=== PATIENT | female | born 1970 | race Caucasian/White ===

== ENCOUNTER → 2017-09-08 12:08 | Outpatient (CLI) | payer OTHER, SELFPAY | PROVIDERS: Family Provider Family Medicine; PCP Family Medicine; Visit Provider Family Medicine | DX: R30.0 Dysuria (principal) | CPT/HCPCS: 87086; 87088; 87186 ==

== ENCOUNTER → 2018-03-10 10:15 | Outpatient (CLI) | payer OTHER, SELFPAY ==
[2018-03-10 11:40] LABS: T4 Free Direct 1.17 ng/dL (0.76-1.46); Thyroid Stim Hormone (TSH) 1.84 uIU/mL (0.358-3.74)
== END ==
PROVIDERS: Family Provider Family Medicine; PCP Family Medicine; Visit Provider Family Medicine
DX: E03.9 Hypothyroidism, unspecified (principal)
CPT/HCPCS: 36415; 84439; 84443

== ENCOUNTER → 2018-06-15 11:19 | Outpatient (CLI) | payer OTHER, SELFPAY ==
[2018-06-19 13:35] LABS: HPV Reflexed? NOT INDICATED
== END ==
PROVIDERS: Visit Provider Obstetrics & Gynecology
DX: Z12.4 Encounter for screening for malignant neoplasm of cervix (principal)
CPT/HCPCS: 88175; G0145

== ENCOUNTER → 2018-06-23 17:21 | Outpatient (CLI) | payer OTHER, SELFPAY | PROVIDERS: Referring Provider Otolaryngology; Visit Provider Otolaryngology | DX: J02.9 Acute pharyngitis, unspecified (principal) | CPT/HCPCS: 87070 ==

== ENCOUNTER → 2018-07-20 13:03 | Outpatient (CLI) | payer OTHER, SELFPAY ==
[2018-01-16 13:02] VITALS: BMI 35.5
--- NOTE | 2018-07-20 13:04 | BI_ITS ---
MAMMOGRAPHY - BILATERAL SCREENING REASON FOR EXAM: Female, 48 years old. Routine annual screening examination. PERTINENT HISTORY: Non-contributory. TECHNIQUE: Digital bilateral breast bayron (3D mammographic acquisition) in the CC and MLO projections. 2-D mediolateral oblique (MLO) and craniocaudad (CC) views of both breasts were obtained. CAD: Full Field Digital Mammography with Computer Added Detection was performed. COMPARISON: Comparison is made with prior study dated January 09, 2018 and June 24, 2016. FINDINGS: Breast Composition: There are scattered areas of fibroglandular density. There are no dominant masses or suspicious calcifications. No other significant abnormalities are identified. There has been no significant change since the prior study. BI/SCREENING MAMM (CAD), BILAT IMPRESSION: Stable bilateral screening mammogram. Yearly follow-up mammogram recommended. (A) ASSESSMENT CATEGORY: BIRADS Category 1: Negative. A letter regarding these results will be sent to the patient by the facility within 30 days. Approximately 10% of breast cancers are not detected by mammography. A normal mammogram should not delay biopsy of a clinically suspicious abnormality. [id number] Electronically Signed: Vijay Rosales MD at 8:11 EST , Service support ,
--- NOTE | 2018-07-20 13:04 | BI_ITS ---
MAMMOGRAPHY - BILATERAL SCREENING REASON FOR EXAM: Female, 48 years old. Routine annual screening examination. PERTINENT HISTORY: Non-contributory. TECHNIQUE: Digital bilateral breast flavio (3D mammographic acquisition) in the CC and MLO projections. 2-D mediolateral oblique (MLO) and craniocaudad (CC) views of both breasts were obtained. CAD: Full Field Digital Mammography with Computer Added Detection was performed. COMPARISON: Comparison is made with prior study dated January 09, 2018 and June 24, 2016. FINDINGS: Breast Composition: There are scattered areas of fibroglandular density. There are no dominant masses or suspicious calcifications. No other significant abnormalities are identified. There has been no significant change since the prior study. BI/Bilat Brst Screen Flavio Add-On IMPRESSION: Stable bilateral screening mammogram. Yearly follow-up mammogram recommended. (A) ASSESSMENT CATEGORY: BIRADS Category 1: Negative. A letter regarding these results will be sent to the patient by the facility within 30 days. Approximately 10% of breast cancers are not detected by mammography. A normal mammogram should not delay biopsy of a clinically suspicious abnormality. [id number] Electronically Signed: Vijay Rosales MD at 8:11 EST , Service support ,
--- OUTSIDE RECORDS SUMMARY | 2018-09-14 02:27 | XMS RPT_ITS ---
:1970 Author Organization [place] Care Team Providers Name Role Phone Candice Orantes Attending Unavailable Gregory Sam Attending Unavailable Gregory Sam Referring Unavailable Kiran Cabral Attending Unavailable Kiran Cabral Referring Unavailable Kiran Cabral Primary Care Unavailable Alma Delia Macdonald Attending Unavailable Kiran Cabral Referring Unavailable ASSESSMENT, HEALTH RISK Attending Unavailable [facility] [place] [facility] Attending Unavailable Kiran Cabral Referring Unavailable [facility] Unavailable PROBLEMS PROBLEMS DATE TYPE CONDITION / CODE ATTENDING STATUS SOURCE 06/15/2018 Unknown Z12.4 - Encounter Rolanda, Active [place] for screening for [facility] malignant neoplasm Hospital of cervix / Repository Z12.4(ICD-10) 03/10/2018 Unknown E03.9 - Ranmichael, Active [place] Hypothyroidism, [facility] unspecified / Hospital E03.9(ICD-10) Repository 03/10/2018 Unknown 244.9 - Unspecified [facility], Active [place] acquired [facility] hypothyroidism / Hospital 244.9(ICD-9) Repository 09/08/2017 Unknown R30.0 - Dysuria / Ranney, Active [place] R30.0(ICD-10) [facility] Repository 09/08/2017 Unknown 788.1 - Dysuria / [facility], Active [place] 788.1(ICD-9) [facility] Repository PROCEDURES PROCEDURES No Procedure Records FoundRESULTS RESULTS Observed: 06/23/2018 Status: F Source: [place] CULTURE, THROAT 5:25 PM [facility] REPOSITORY Culture, Throat Mixed normal throat parminder. No Haemophilus, Streptococcus pneumoniae, beta-hemolytic Streptococcus or Staphylococcus aureus isolated. Performed By: #### M100.1000 #### [facility] [address], [address] PAP I-G W/RFX HRHPV Collected: 06/15/2018 Status: F Source: [place] 9:15 AM [facility] REPOSITORY Order Comment: CYTOLOGY INFORMATION: - CLINICAL INFORMATION: - DATE LMP/MENOPAUSE: 05/02/18 LMP - COLLECTION VIAL: Thin Prep Vial - SPECIAL PROCEDURES NURSE SOURCE: CERVICAL/ENDOCERVICAL - COLLECTION TECHNIQUE: BRUSH/SPATULA Specimen Comment: [id number] Specimen Comment: Source.............Cervix;Endocervix Specimen Comment: LMP / Prev Treat...[id number] Specimen Comment: No. of containers..01 ThinPrep Vial TYPE CODE TESTS RESULT OUT OF RANGE REFERENCE UNITS LAB L7400.0800 . Normal DIAGN Comment Result Comment: NEGATIVE FOR INTRAEPITHELIAL LESION AND MALIGNANCY. CELLULAR CHANGES ASSOCIATED WITH INFLAMMATION ARE PRESENT. THIS SPECIMEN WAS RESCREENED PART OF OUR [employer] DEVELOPER PROGRAM. LAB L7400.0900 . Normal ADEQ Comment Result Comment: Satisfactory for evaluation. Endocervical and/or squamous metaplastic cells (endocervical component) are present. LAB L7400.1400 . Normal PERFORM Comment Result Comment: Beck Saleh, Dining Room Cashier (ASCP) LAB L7400.1500 . Normal QC Comment REV Result Comment: Marilynn Villalba, Dining Room Cashier (ASCP) LAB L7400.2575 . Normal TEST METHOD Comment Result Comment: This liquid based ThinPrep(R) pap test was screened with the use of an image guided system. LAB L7400.2600 . Normal . COMM LAB L7400.2700 . Normal PAPSMR Comment Result Comment: The Pap smear is a screening test designed to aid in the detection of premalignant and malignant conditions of the uterine cervix. It is not a diagnostic procedure and should not be used as the sole means of detecting cervical cancer. Both false-positive and false-negative reports do occur. LAB L7400.2800 . Normal HPV RFLX Comment Result Comment: The HPV DNA reflex criteria were not met with this specimen result therefore, no HPV testing was performed. Performed at: [address] [id number] [place] Comber: Eva Phelan MD, Phone: [phone] Performed By: #### L7400.0350 #### [facility] (refer to report for specific site) refer to report for address and phone number [employer], EMPLOYEE Collected: 03/10/2018 Status: F Source: URIEL 10:22 AM [facility] REPOSITORY TYPE CODE TESTS RESULT OUT OF RANGE REFERENCE UNITS LAB L100.1000 4.4-11.0 K/mm3 Normal WBC 8.1 LAB L100.1200 4.2-5.4 M/mm3 Low RBC 4.12 LAB L100.1300 12.0-15.0 g/dl Normal HGB 12.6 LAB L100.1400 37-47 % Normal HCT 38.1 LAB L100.1500 81-99 fL Normal MCV 92.5 LAB L100.1600 27.0-32.0 pg Normal MCH 30.6 LAB L100.1700 32-36 g/gl Normal MCHC 33.1 LAB L100.1810 11.6-14.6 % Normal RDW CV 13.3 LAB L100.1820 35.1-43.9 fl High RDW SD 44.6 LAB L100.1900 150-450 K/mm3 Normal PLT 247 LAB L100.2000 6.2-12.0 fl Normal MPV 10.8 LAB L100.2110 47-70 % Normal NEUT% 58.9 LAB L100.2210 19-41 % Normal LY% 31.8 LAB L100.2310 0-10 % Normal MONO% 5.9 LAB L100.2410 0-5 % Normal EO% 3.1 LAB L100.2510 0-1 % Normal BASO% 0.2 LAB L100.2620 2.0-7.7 X10 3/uL Normal Absolute Neut 4.8 LAB L100.2720 0.83-4.51 X10 3/ul Normal Absolute Lymph 2.58 Performed By: #### L100.0200 #### [facility] [address] [place] [address]. [place], [place], [address] [employer], EMPLOYEE Collected: 03/10/2018 Status: F Source: [place] 10:22 AM [facility] REPOSITORY TYPE CODE TESTS RESULT OUT OF RANGE REFERENCE UNITS LAB L400.3000 Yellow COLOR Normal Yellow LAB L400.3050 Clear Normal CLARITY Clear LAB L400.3200 Normal mg/dl Normal GLUCOSE, UR Normal LAB L400.3300 Negative mg/dL Normal BILIRUBIN URINE Negative LAB L400.3400 Negative mg/dl Normal KETONE UR Negative LAB L400.3465 1.002-1.030 Normal SP.GR. DIPSTX 1.010 LAB L400.3550 5.0 - 8.0 pH UR Normal 6.5 LAB L400.3600 Negative mg/dl PROT Normal DIPSTX Negative LAB L400.3700 Normal mg/dl Normal UROBILI Normal LAB L400.3750 Negative Normal NITRITE UR Negative LAB L400.3780 Negative /ul Normal OCCULT BLOOD-UR Negative LAB L400.3800 Negative /ul High LEUK ESTERASE 500 Performed By: #### L400.0100 #### [facility] [address] [place], [address] EMPLOYEE PROFILE Collected: 03/10/2018 Status: F Source: URIEL 10:22 AM [facility] REPOSITORY TYPE CODE TESTS RESULT OUT OF RANGE REFERENCE UNITS LAB L501.0100 74-106 mg/dL Normal GLU 83 Result Comment: Please note revised GLUCOSE reference range effective 2017. LAB L501.1000 7-18 mg/dL Normal BUN 9 LAB L501.1100 0.55-1.02 mg/dL Normal CREAT,SERUM 0.98 Result Comment: The validity of the calculated GFR AND GFRAA in patients over 70 years has not been determined. Clinical correlation is essential. LAB L501.1110 >60 mL/min Normal EST GFR 64 Result Comment: Non- GFR Calc LAB L501.1115 >60 mL/min Normal EST GFR - AA 78 Result Comment: GFR Calc LAB L501.1300 10-20 RATIO Low BUN/CRE 9.2 LAB L501.1400 2.6-6.0 mg/dL Normal URIC 5.1 Result Comment: The drugs N-Acetylcysteine and Metamizole may falsely depress this assay. LAB L501.1500 6.4-8.2 g/dL Normal T PROT 7.3 LAB L501.1800 3.2-5.0 g/dL Normal ALB 3.2 LAB L501.1950 2.2-4.2 g/dL Normal GLOB 4.1 LAB L501.2000 0.9-2.4 RATIO Low A/G 0.8 LAB L501.2200 8.5-10.1 mg/dL Normal CA 8.6 LAB L501.2300 2.5-4.9 mg/dL Low PHOS 2.2 LAB L501.4100 15-37 U/L Normal AST 17 LAB L501.4305 45-117 U/L Normal ALK P 74 LAB L501.4405 13-56 U/L Normal ALT 20 LAB L501.4600 0.20-1.00 mg/dL Normal T BILI 0.60 LAB L501.4700 0.00-0.30 mg/dL Normal D BILI 0.16 LAB L501.4900 200 mg/dL Normal CHOL 179 Result Comment: <200 mg/dL Desirable 200-240 mg/dL Borderline >240 mg/dL High Risk LAB L501.5000 mg/dL Normal TRIG 175 Result Comment: The drugs N-Acetylcysteine and Metamizole may falsely depress this assay. Serum Triglycerides Reference Interval Normal <150 mg/dL Borderline high 150 - 199 mg/dL High 200 - 499 mg/dL Very High > or = 500 mg/dL LAB L501.5300 136-145 mmol/L Normal NA 138 LAB L501.5600 3.5-5.1 mmol/L Normal K 3.9 LAB L501.5900 98-107 mmol/L Normal CL 107 LAB L501.6100 21.0-32.0 mmol/L Normal CO2 22.0 LAB L501.6200 5-15 Normal 9 GAP LAB L501.6400 mg/dL Normal HDL 46 Result Comment: The drugs N-Acetylcysteine and Metamizole may falsely depress this assay. Reference Range HDL <40 mg/dL Low HDL Cholesterol HDL >or= 60 mg/dL High HDL Cholesterol LAB L501.6475 Normal CHOL:HDL 3.90 LAB L501.6500 0-130 mg/dL Normal LDL 98 LAB L501.6600 5-40 mg/dL Normal VLDL 35 LAB L504.2610 84-246 U/L Normal LDH 136 Performed By: #### L500.2900 #### [facility] [address] [facility], [address] NICOTINE URINE DRUG Collected: 03/10/2018 Status: F Source: [place] SCREEN 10:22 AM [facility] REPOSITORY TYPE CODE TESTS RESULT OUT OF RANGE REFERENCE UNITS LAB L505.6250 TO BE Normal CONFIRMED Result Comment: CONFIRMATORY TESTING FOR ALL POSITIVE URINE DRUG SCREEN RESULTS WILL ONLY BE SENT OUT UPON PHYSICIAN ORDER. The results of Urine Drug Screen methods provide only preliminary analytical test results. A more specific alternate chemical method must be used in order to obtain a confirmed analytical result. Gas chromatography/mass spectrometery (GC/MS) is the preferred confirmatory method. Clinical consideration and professional judgement should be applied to any drug of abuse test result, particularly when preliminary positive results are used. LAB L505.6224 <200 ng/mL Normal COT DRG Negative SCREEN Result Comment: Cotinine is the first-stage metabolite of Nicotine. Performed By: #### L505.6221 #### [facility] [address] [facility] [place], [address] THYROID STIM HORMONE Collected: 03/10/2018 Status: F Source: URIEL (TSH) 10:21 AM [facility] REPOSITORY Order Comment: Order Date: 09/08/17 Order Info: 3016-3 - TSH Order Info: 3024-7 - T4F TYPE CODE TESTS RESULT OUT OF RANGE REFERENCE UNITS LAB L501.9520 0.358-3.74 uIU/mL Normal TSH 1.84 Performed By: #### L501.9520, L506.0400 #### [facility] [address] [place], [address] T4 FREE DIRECT Collected: 03/10/2018 Status: F Source: URIEL 10:21 AM [facility] REPOSITORY Order Comment: Order Date: 09/08/17 Order Info: 3016-3 - TSH Order Info: 3024-7 - T4F TYPE CODE TESTS RESULT OUT OF RANGE REFERENCE UNITS LAB L506.0400 0.76-1.46 ng/dL Normal T4 FREE 1.17 DIRECT Performed By: #### L501.9520, L506.0400 #### [facility] [address] [place], [address] URGENT CARE VISIT Observed: 01/16/2018 Status: F Source: URIEL REPORT 2:42 PM [facility] REPOSITORY [facility] [address] [place] [address] [address] [place] [address] OFFICE VISIT Date of Service: 01/16/18 MR#: [id number] Acct: [id number] Name: MERY BUTLER Rep #: [id number] : 1970 Provider: CHEPE Macdonald Age/Sex: 47/F Location: [facility] Status: Signed Intake Vital Signs01/16/18 Height 5 ft 7 in 01/16/18 Weight: 227 lb 01/16/18 Body Mass Index (BMI) 35.5 01/16/18 Blood Pressure 122/80 Intake Visit Reasons: INSECT BITE LEFT ANKLE Chief Complaint: left ankle ?infected bug bite Neonatal Intensive Care Unit Nurse Required: No Is patient in pain?: Yes Allergies No Known Allergies Allergy (Verified 01/16/18 13:03) Medications Bupropion HCl [Bupropion Xl] 300 mg PO DAILY 01/07/15 [History Confirmed 01/07/15] Levothyroxine [Synthroid] 88 mcg PO DAILY 01/07/15 [History Confirmed 01/14/15] PFSH Medical History Hay fever (Acute) Thyroid disease (Acute) severe headaches (Acute) Surgical History History of cholecystectomy (Acute) Family History Mother Cancer skin cancer Hypertension Father Carcinoma Social History Smoking Status: Never smoker alcohol intake: never HPI HPI Chief Complaint: left ankle ?infected bug bite Details: 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 She states it started as a small red itchy bump Wednesday that became blistered Wednesday. The blister broke on its own and the area became painful. Then yesterday she noted pain radiating up her posterior heel, but not redness or warmth. Today she notes a little tenderness by her calf as well without any redness or warmth. She has no pain with walking but some tenderness to deep palpation of the areas. She has no fever, chills GI or respiratory symptoms. She has to work tomorrow on her feet all day and decided she should get it treated. She did not see what bit her. ROS Const Constitutional: No body ache, chills, fatigue, fever(s), night sweats, change in appetite, weakness, frequent falls, headache(s) or excessive sweating Eyes Eyes: No visual disturbances, light sensitivity, eye pain or change in vision ENT ENT: Positive for other (Thyroid disease on levothyroxine); no ear pain, ear discharge, hearing loss, dizziness/vertigo, nasal discharge, difficulty swallowing, sore throat, neck pain or headache(s) Resp Respiratory: No cough, chest congestion, hemoptysis, shortness of breath or wheezing Cardio Cardiology: No shortness of breath, irregular heart rhythm, lightheadedness, chest pain at rest, chest pain with exertion, generalized swelling, orthopnea, palpitations or excessive sweating Gastro GI: No difficulty swallowing, abdominal pain, bloating, change in bowel habits, diarrhea, blood in stool, Black,tarry stools, nausea/dyspepsia or vomiting Genitourinary-Female: No burning urination, urinary frequency, urinary urgency, blood in urine or Vaginal Itching Musc Musculoskeletal: Positive for other (left lower posterior leg/muscle tenderness); no joint pain, back pain, numbness, tingling or neck pain Skin Skin: Positive for lesions (see HPI: 2 on left ankle); no itching or rash Neuro Neurology: No visual disturbances, numbness, tingling, abnormal speech, confusion, unsteady gait/balance, dizziness, weakness, frequent falls, loss of vision or headache(s) Psych Psychiatric: No change in appetite, No confusion, No anxiety, No depression Endo Endocrine: Positive for other (Thyroid disease on levothyroxine); no fatigue, cold intolerance, excessive sweating, flushing, heat intolerance or increased thirst/drinking Aller/Imm Allergy/Immunologic: Positive for other (She takes two shots a week for environmental allergies.); no wheezing, itchy eyes, food intolerance, seasonal allergy symptoms or hives Gurwinder/Lymp Hematologic/Lymphatic: No easy bruising Exam Const General: cooperative, no acute distress Nutritional Appearance: overweight Orientation: alert, oriented x3 HENMT Head: normal to inspection, normocephalic Ears: hearing grossly normal bilaterally, external ears normal Face and sinus: normal facial exam Mouth: other (airway patent), oropharynx normal Throat: posterior oropharynx normal Eyes General: appearance normal, both eyes and all related structures Visual Cohen: normal visual cohen by confrontation Eyelids: eyelids normal Conjunctivae: conjunctivae normal Sclera: sclerae normal Neck Neck: normal visual inspection, no meningeal signs, supple, no lymphadenopathy Carotids: no bruits Lymphatic: no lymphadenopathy noted Chest Chest palpation AND inspection: normal inspection of the chest Resp Effort AND Inspection: normal respiratory effort, able to speak in complete sentences, symmetric chest movement, no audible wheezes, no cough, not labored, no respiratory distress Auscultation: Bilateral: Clear to Auscultation Cardio Rate: regular rate Rhythm: regular rhythm Heart Sounds: S1 normal, S2 normal GI Inspection: normal to inspection Auscultation: normal bowel sounds Palpation: soft, no hepatosplenomegaly, no pulsatile masses, other (No Inguinal lymphadenopathy bilaterally) Musc Musculoskeletal: No joint tenderness, joint redness or decreased ROM Skin Lesions: lesion noted (one anteromedial lefft foot. One posterolateral left ankle. ) Other: The blisters had popped and skin removed from the lesions noted on the foot. There was no erythema around the lesions, no drainage, no warmth, and no obvious evidence of infection around the lesions or the calf. There is, however tenderness up the achilles into her calf. There is a Negative Rosaline's sign, but there is calf tenderness. Pedal Pulses are intact and equal bilaterally. Neuro General: alert, oriented x3, moves all extremities Speech: speech normal Motor: muscle tone normal throughout Sensory Exam: no sensory deficits noted Extrem General: normal exam except as noted Other: see under SKIN; Left calf was 44 cm, right calf was 43 cm. + mild to mod calf tenderness, No warmth, No erythema, Negative Rosaline's sign. Foot is not tender. No other abnormalities noted. No lymphadenopathy bilateral inguinal regions. Psych Appearance: grossly normal, well kempt Mental Status: mental status grossly normal Affect: normal affect Speech and Movement: speech and movement normal Attitude: cooperative Thought Process: normal Thought Content: normal Judgment: judgment good Assessment AND Plan Problems 1. Insect bite, initial encounter W57.XXXA 2. Infected insect bite W57.XXXA 3. Pain of left calf M79.662 Plan 1. Called Cephalxin 250 mg #40 to Evie [phone] Take 2 initially, then one every 6 hours until gone 2. Warm compresses/soaks 3. To ER if soreness increases or extends further up leg, runs fever or chills, or has pain with walking. 4. F/u with her PCP this week if symptoms persist. Coding Level of Care Code Off vis,new,level 3 Diagnoses Insect bite, initial encounter W57.XXXA Encounter type: initial encounter Infected insect bite W57.XXXA Pain of left calf M79.662 01/16/18 1442 <Electronically signed by Alma Delia MO> Date Alma Delia MO Cosigner Signature: Date (if applicable) CC: Observed: 09/08/2017 Status: F Source: [place] CULTURE, URINE 12:15 PM [facility] REPOSITORY Order Date: 09/08/17 Order Info: 630-4 - CUUR Urine Culture ORGANISM 1: Presumptive E. coli Gilman Count >100,000 Presumptive E. coli: REACTION Amoxacillin/Clavulanic Acid $ <=2 S Ampicillin $ <=2 S Ampicillin/Sulbactam $ <=2 S Cefazolin $ <=4 S Cefepime $ <=1 S Ceftriaxone $ <=1 S Ciprofloxacin $ <=0.25 S ESBL - Ertapenim $$$ <=0.5 S Gentamicin $ <=1 S Imipenem *NF <=0.25 S Levofloxacin $ <=0.12 S Nitrofurantoin $ <=16 S Piperacillin/Tazobactam $$ <=4 S Tobramycin $ <=1 S Trimethoprim/Sulfametho $ <=20 S (NF) indicates non-formulary drug at [facility]. Approval by Infectious Disease Specialist required before non-formulary drugs may be ordered and/or dispensed. Performed By: #### M100.0650 #### [facility] [address] [place] [address]. [place], [place], [address] ALLERGIES ALLERGIES DATE TYPE / CODE NAME / CODE REACTION SEVERITY SOURCE 01/16/2018 Drug No Known Unknown [facility] Allergy/4160 Allergies/F00 Hospital 77294(SNOMED 1459267(RXNOR Repository CT) M) ENCOUNTERS ENCOUNTERS ADMIT/DISCHARGE ACCOUNT ADMITTING ENCOUNTER LOCATION SOURCE NUMBER CLASS 06/23/2018 [id number] Ambulatory [facility] ing:[facility]SPEC Repository 06/15/2018 [id number] Ambulatory [facility] 8 [facility] ing:LABSPEC Repository 03/10/2018 [id number] Ambulatory [facility] 7 [facility] ing:LAB Repository 03/10/2018 [id number] Ambulatory [facility] 4 [facility] ing:EMPH Repository 01/16/2018/ [id number] Ambulatory BMS[facility]:B [place] 8 3 [facility] Repository 09/08/2017 [id number] Ambulatory [place] [facility] ing:[facility]SPEC Repository PAYERS PAYERS ENCOUNTER GUARANTOR PAYER SUBSCRIBER SOURCE 06/23/2018 MERY Petty Primary Insurance:[facility] MERY Petty [place] [id number] [facility] REPPDOB: [facility] [id number] Hospital [address]Omb: [phone]) Number: Repository [phone] () [id number] Date:8793-44-50DQ [address] [address], [place] [address]SK: CHECK WEBSITE 06/23/2018 Secondary NOT GIVENUNK [place] Insurance:SELF PAY [facility] Number: Effective Repository Date:2018-06-23 06/15/2018 Mery Petty Primary Insurance:[facility] MERY Petty [place] [id number] [facility] REPPDOB: [facility] [id number] Hospital [address]Olw: [phone]) Number: Repository [phone] () [id number] Date:8597-67-55TL [address] [address], [place] [address]DT: CHECK WEBSITE 06/15/2018 Secondary NOT GIVENUNK [place] Insurance:SELF PAY [facility] Number: Effective Repository Date:2018-06-15 03/10/2018 Mery Petty Primary Insurance:[facility] MERY Petty [place] [id number] [facility] REPPDOB: [facility] [id number] Hospital [address]Azl: [phone]) Number: Repository [phone] () [id number] Date:[id number] [address] [address], [place] [address]NI: CHECK WEBSITE 03/10/2018 Secondary NOT GIVENUNK [place] Insurance:SELF PAY [facility] Number: Effective Repository Date:2018-03-10 03/10/2018 Mery Petty Primary NOT GIVENUNK [place] [id number] [place] Insurance:SELF PAY [facility] [address]Fsu: [phone]) Number: Effective Repository [phone] () Date:2018-03-10 01/16/2018 Mery Petty Primary Insurance:[facility] MERY Petty [place] [id number] [facility] REPPDOB: [facility] [id number] Hospital [address]Qst: [phone]) Number: Repository [phone] () [id number] Date:6128-58-82PS [address] [address], [place] [address]EN: CHECK WEBSITE 01/16/2018 Secondary NOT GIVENUNK [place] Insurance:SELF PAY [facility] Number: Effective Repository Date:2018-01-16 09/08/2017 Mery Petty Primary Insurance:[facility] MERY Petty [place] [id number] [facility] REPPDOB: [facility] [id number] Hospital [address]Vwq: (330) Number: Repository [phone] () [id number] Date:7845-52-76SC [address] [address], [place] [address]HX: CHECK WEBSITE 09/08/2017 Secondary NOT GIVENUNK [place] Insurance:SELF PAY [facility] Number: Effective Repository Date:2017-09-08
== END ==
PROVIDERS: Family Provider Family Medicine; PCP Family Medicine; Referring Provider Obstetrics & Gynecology; Visit Provider Obstetrics & Gynecology
DX: Z12.31 Encounter for screening mammogram for malignant neoplasm of breast (principal)
CPT/HCPCS: 77063; 77067

== ENCOUNTER → 2019-03-21 14:48 | Outpatient (CLI) | payer OTHER, SELFPAY ==
[2018-01-16 13:02] VITALS: BMI 35.5
[2019-03-21 16:17] LABS: T4 Free Direct 1.01 ng/dL (0.76-1.46)
[2019-03-21 16:24] LABS: Vitamin D,25 Hydroxy 25.7 ng/mL (29.95-100.01)
== END ==
PROVIDERS: Family Provider Family Medicine; PCP Family Medicine; Referring Provider Family Medicine; Visit Provider Family Medicine
DX: E03.9 Hypothyroidism, unspecified (principal); F32.9 Major depressive disorder, single episode, unspecified
CPT/HCPCS: 36415; 82306; 84439; 84443

== ENCOUNTER → 2019-04-04 14:34 | Outpatient (CLI) | payer OTHER, SELFPAY ==
[2018-01-16 13:02] VITALS: BMI 35.5
[2019-04-04 15:10] LABS: Absolute Lymphocyte Count 2.23 X10^3/uL (0.83-4.51); Absolute Neutrophil Count 6.5 X10^3/uL (2.0-7.7); Basophil# 0.04 X10^3/uL; Basophil% 0.4 % (0-1); Eosinophil# 0.25 X10^3/uL; Eosinophils% 2.6 % (0-5); Hematocrit 42.4 % (37-47); Lymphocyte # 2.23 X10^3/ul (4.0); Lymphocyte % 23.4 % (19-41); Mean Corpuscular Hgb 31.2 pg (27.0-32.0); Mean Corpuscular Volume 94.4 fL (81-99); Mean Platelet Vol. 10.1 fl (6.2-12.0); Monocyte# 0.49 X10^3/uL; Monocyte% 5.1 % (0-10); NRBC Flagged by Analyzer 0 % (0-5); Neutrophil # 6.47 X10^3/uL (2.7-7.7); Neutrophil % 68.1 % (47-70); Platelet Count 301 K/mm3 (150-450); RBC Distribution Width CV 13.4 % (11.6-14.6); RBC Distribution Width SD 46.5 fl (35.1-43.9); Red Blood Count 4.49 M/mm3 (4.2-5.4); White Blood Count 9.5 K/mm3 (4.4-11.0)
[2019-04-04 15:17] LABS: Erythrocyte Sedimentation Rate 16 mm/hr (0-20)
[2019-04-04 15:34] LABS: ALB/GLOB Ratio 0.8 RATIO (0.9-2.4); AST(SGOT) 17 U/L (15-37); Alanine Aminotransfer ALT/SGPT 16 U/L (13-56); Albumin, Serum 3.2 g/dL (3.2-5.0); Alkaline Phosphatase 87 U/L (45-117); Anion Gap 5 (5-15); BUN 9 mg/dL (7-18); Chloride 108 mmol/L (98-107); EST Glomerular Filtration Rate 71 mL/min (>60); Est Glom Filt Rate - Afr Amer 85 mL/min (>60); Globulin 4.2 g/dL (2.2-4.2); Glucose 80 mg/dL (74-106); Iron 97 ug/dL (50-170); Protein, Total 7.4 g/dL (6.4-8.2); Sodium Level 139 mmol/L (136-145)
[2019-04-04 15:40] LABS: Vitamin B12 276 pg/mL (211-911)
== END ==
PROVIDERS: Family Provider Family Medicine; PCP Family Medicine; Referring Provider Family Medicine; Visit Provider Family Medicine
DX: R53.83 Other fatigue (principal)
CPT/HCPCS: 80053; 82533; 82607; 83540; 85025; 85652

== ENCOUNTER → 2019-07-24 13:01 | Outpatient (CLI) | payer OTHER, SELFPAY ==
--- NOTE | 2019-07-24 13:03 | BI_ITS ---
MAMMOGRAPHY - BILATERAL SCREENING REASON FOR EXAM: Female, 49 years old. Routine annual screening examination. PERTINENT HISTORY: Non-contributory. TECHNIQUE: Digital bilateral breast wendy (3D mammographic acquisition) in the CC and MLO projections. 2-D mediolateral oblique (MLO) and craniocaudad (CC) views of both breasts were obtained. CAD: Full Field Digital Mammography with Computer Added Detection was performed. COMPARISON: Comparison is made with prior study dated July 20, 2018 and July 12, 2017. FINDINGS: Breast Composition: There are scattered areas of fibroglandular density. There are no dominant masses or suspicious calcifications. No other significant abnormalities are identified. There has been no significant change since the prior study. BI/SCREEN MAMM (CAD) W/WENDY BILAT IMPRESSION: Stable bilateral screening mammogram. Yearly follow-up mammogram recommended. (A) ASSESSMENT CATEGORY: BIRADS Category 1: Negative. A letter regarding these results will be sent to the patient by the facility within 30 days. Approximately 10% of breast cancers are not detected by mammography. A normal mammogram should not delay biopsy of a clinically suspicious abnormality. [id number] Electronically Signed: Vijay Rosales, at 13:56 EST , Service support ,
== END ==
PROVIDERS: Family Provider Family Medicine; PCP Family Medicine; Referring Provider Obstetrics & Gynecology; Visit Provider Obstetrics & Gynecology
DX: Z12.31 Encounter for screening mammogram for malignant neoplasm of breast (principal)
CPT/HCPCS: 77063; 77067

== ENCOUNTER → 2019-07-31 15:54 | Outpatient (CLI) | payer OTHER, SELFPAY ==
[2018-01-16 13:02] VITALS: BMI 35.5
[2019-07-31 18:40] LABS: T4 Free Direct 1.11 ng/dL (0.76-1.46); Thyroid Stim Hormone (TSH) 1.57 uIU/mL (0.358-3.74)
== END ==
PROVIDERS: PCP Family Medicine; Referring Provider Family Medicine; Visit Provider Family Medicine
DX: E03.9 Hypothyroidism, unspecified (principal)
CPT/HCPCS: 36415; 84439; 84443

== ENCOUNTER 2020-01-29 13:30 | Outpatient (RCR) | payer OTHER, SELFPAY ==
--- NOTE | 2019-07-28 10:42 | MASS.EVAL ---
Massage Therapy Evaluation: Initial Evaluation Date: 07/25/2019 SUBJECTIVE: Mery is a 49 year old female who was referred to the [facility] facility for a massotherapy evaluation by Dr. Luna with the diagnosis of tension headaches. She presents today with the symptoms of pain, stiffness and tension in the neck, mid back, and having headaches. Mery reports that her headaches increase during work. OBJECTIVE: Upon observation Mery has some posture issues with her head and shoulders forward from the neutral position in sitting and standing. After examination and palpation, I found Mery to have high muscle tension with tenderness and myofascial restrictions in her sub occipitals, levator scapulae, trapezius, rhomboids, scalenes, and thoracic paraspinals. The first treatment consisted of a one hour massage to her upper body with myofascial release, muscle stripping, trigger point compression techniques, and cervical manual traction. ASSESSMENT: I feel that Mery is a good candidate for massotherapy at this time. She had a favorable response to the first treatment with reduction in her muscle aches, pain and tension. She also had improvement in her cervical flexibility. PLAN: The plan of care was reviewed with the patient. The patient is to be seen on an as needed basis for a total of ten sessions with the recommendation of once every month for a one hour treatment.
--- NOTE | 2020-06-08 09:55 | DS.PCM_ITS ---
Massage Therapy Discharge Summary: Discharge Date: 06/08/2020 Mery was seen for a massotherapy evaluation on 07/25/2019 with the diagnosis of tension headaches. She was treated with five sessions of massage therapy consisting of deep pressure soft tissue techniques, myofascial release and trigger point compression to her cervical, thoracic, lower back and hips. Mery responded well to the therapy by reporting decreased tension and pain throughout her neck, shoulders, lower back and hips. Her goals for therapy were met throughout the treatment sessions. At this time this patient is being discharged from our care at [facility] facility.
== END 2020-01-29 19:00 | disposition home or self-care (01) ==
LOC: MASS 13:30
PROVIDERS: Family Provider Family Medicine; PCP Family Medicine; Referring Provider Family Medicine; Visit Provider Family Medicine
DX: G44.209 Tension-type headache, unspecified, not intractable (principal)
CPT/HCPCS: 97124

== ENCOUNTER 2020-02-12 07:31 | Day surgery (SDC) | payer OTHER, SELFPAY ==
[2018-01-16 13:02] VITALS: BMI 35.5
[2020-02-12 07:48] VITALS: BP 150/71; PULSE 90; RESP 16; TEMP 37.2; O2SAT 97; BMI 35.5
[2020-02-12] MEDS: Lactated Ringers 1,000 ML 100 ML IV (07:52)
[2020-02-12 07:58] LABS: Internal QC Validated? YES +Cl - CLEAR BKGD
[2020-02-12 08:13] LABS: Pregnancy, Urine Negative Negative
--- NOTE | 2020-02-12 08:15 | HP.PCM_ITS ---
History of Present Illness Date of Admission: 02/12/20 The patient is a 49 year old F who presents for screening colonoscopy. Past Medical/Surgical History - Planned Operation Planned Operative Procedure/s: colonoscopy Date of Operative Procedure: 02/12/20 Permit Signed: No S.O.S: No Is This Patient Having a Total Joint: No - Previous Hospitalizations/Surgeries HX Hospitalizations: No HX of Surgeries: LEFT FOOT SURGERY. LEFT LEG SAPHENOUS VEIN REMOVED. 2015 lap choleycystectomy Any Problems With Anesthesia: No You/Your Family Experience Fever (Hyperthermia) With Anes: No Cholinesterase deficiency: No - Cardiovascular Hx Chest Pain within Last 2 months: No Hx of Irregular Heartbeat and/or Afib: No Hx Heart Attack: No Hx Congestive Heart Failure: No Hx Rheumatic Fever: No Hx Hypertension: No Hx Internal Defibrillator: No Hx Pacemaker: No Hx Cardiac Catheterization: No Hx Cardiac Surgery/Stents/Etc.: No Hx Stress Test: No HX Edema: No Hx Pain in Legs when Walking/Leg Cramps: No - Respiratory Chronic Cough: No HX of Shortness of Breath: No Hoarseness: No Hx Chronic Obstructive Pulmonary Disease (COPD): No Hx Asthma: No Hx Emphysema: No Hx Sleep Apnea: No CPAP: No BIPAP: No Hx Oxygen Use at Home: No Hx Respiratory Tract Infection/Cold (presently): No Do You Snore Loudly (louder than talking or can be heard): No Do You Often Feel Tired/ Fatigued/ Sleepy Dring Daytime?: No Has Anyone Observed You Stop Breathing During Sleep?: No Result (for STOP score): Negative Hx Smoking: No Smoking Status: Never smoker - Gastrointestinal Hx Gastroesophageal Reflux: No Hx Gastrointestinal Disorders: No Hx Gastrointestinal Bleed: No Hx Ulcer: No Hx Hiatal Hernia: No Difficulty Chewing/Swallowing: No Recent Onset of Swallowing Problems: No Special diet followed at home: No Hx Unplanned Weight Loss of 20#: No HX Unplanned Weight Gain of 20#: No - Neurological Hx Seizures: No HX Syncope/Blackout Spells/Unconsciousness: No Hx CVA/Stroke: No Hx Transient Ischemic Attacks (TIA): No Hx Multiple Sclerosis: No Hx Parkinson's Disease: No Hx Head/Neck Injury: No Hx Headaches: Yes - hx migraines Hx Back Injury/Pain: No Recent Onset of Speech Difficulty: No Restless Legs: No Does patient have nerve stimulator: No - Blood Disorder Hx Leukemia: No Bleeding Tendencies: No Hx Deep Vein Thrombosis: No Hx High Cholesterol: No Blood Transmitted Disease: No Hx Hepatitis: No Hx Cirrhosis: No Hx Anemia: No Hx Blood Disorders: No - Reproduction : No Is Patient Lactating: No Hx Hysterectomy: No Hx Tubal Ligation: No Are You Post Menopause: No Pt Instructed Not To Have Any Sex From Now Until Surgery: Yes - Genitourinary Hx Renal Disease: No - Musculoskeletal Hx Arthritis: No Hx Rheumatoid Arthritis: No Hx Gout: No Recent Onset of an Orthopedic Problem: No - Endocrine Hx Diabetes: No Thyroid Disease: Yes - ON MED Hx Steroid Therapy: No - Psycho/Social Hx Substance Use: No Hx Alcohol Use: No Hx Anxiety: Yes - ON MEDS Hx Depression: Yes - ON MEDS Mental Illness: No Hx Dementia: No - Miscellaneous Hx Cancer: No 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 Hx of C-Diff: No Any Loose Teeth: No Allergies No Known Allergies Allergy (Verified 02/12/20 07:36) - Discharge Is Pt Admitted From a Senior Care, or a Retirement: No Who Could Help: mom After D/C, Where Do you Plan to Go: Return Home - Physical Exam Vitals/I&O's: Vital Signs Temp Pulse Resp BP Pulse Ox 99.0 F 90 16 150/71 H 97 02/12/20 07:48 02/12/20 07:48 02/12/20 07:48 02/12/20 07:48 02/12/20 07:48 Oxygen Delivery Method Room Air Weight: 220 lb 0.341 oz Body Mass Index (BMI) 35.5 General: Alert, Oriented x3 Lungs: Clear to auscultation Cardiovascular: Regular rate, Regular Rhythm, No murmurs Abdomen: Bowel Sounds Present, Soft, Non Tender, Non-Distended Laboratory Results 02/12/20 07:46: Urine Test Negative Current Medications Lactated Ringer's () 1,000 mls @ 100 mls/hr IV .Q10H HUANG Last Admin: 02/12/20 07:52 Dose: 100 mls/hr Documented by: Assessment/Plan All Active Problems (Last Updated 01/16/18 @ 13:05 by Grecia Lopez) Scratch (Acute) Assessment: Screening colonoscopy Plan: Colonoscopy Procedure Criteria Procedure Type: Elective COVID Risk Discussion: The surgeon/proceduralist and patient have discussed in detail the risk of exposure to and/or potential harm posed by the COVID-19 virus with having a surgery/procedure at this time versus the risk of delaying the surgery/procedure. It is not possible to know either the risk of delaying the surgery or procedure or chance of getting an infection with perfect accuracy, but a joint decision was made between the patient and the surgeon/proceduralist to proceed at this time with the scheduled surgery/procedure as indicated on the consent form. Surgery Risks - Colonoscopy Risks Include but are not Limited To: Risks include but are not limited to: Bleeding, perforation requiring further surgery, inability to complete colonoscopy requiring barium enema.
--- NOTE | 2020-02-12 08:42 | OP.CCLET_ITS ---
02/12/2020 Gregory Cabral [address] [place] [address] Re : Colonoscopy procedure for Mery Moore Dear Dr. Cabral This procedure was performed on Wednesday, February 12, 2020. My impressions and recommendations are as follows: Impressions : - Non-bleeding internal hemorrhoids. - Diverticulosis in the sigmoid colon. No specimens collected. - The examination was otherwise normal. Recommendations : - Discharge patient to home. - Resume previous diet. - Continue present medications. - Repeat colonoscopy in 5 years for surveillance. - Return to primary care physician (date not yet determined). My findings are described in the full procedure note, which is enclosed. If I can be of further assistance, please feel free to contact me at Doctor phone number(s): , Fax: [phone], Work: . Sincerely, MD Brady Brush MD 02/12/2020 8:42:13 AM This report has been signed electronically.
--- NOTE | 2020-02-12 08:42 | OP.COLON_ITS ---
Patient Name: Mery Moore Procedure Date: 02/12/2020 8:18 AM Date of : 1970 Age: 49 Procedure: Colonoscopy Indications: Screening for colorectal malignant neoplasm Providers: Brady Posada MD Referring MD: Gregory Cabral Medicines: See the Anesthesia note for documentation of the administered medications Patient Profile: This is a 49 year old female. Refer to note in patient chart for documentation of history and physical. Last Colonoscopy: none. The patient's first colonoscopy is today. Complications: No immediate complications. Procedure: Pre-Anesthesia Assessment: - Prior to the procedure, a History and Physical was performed, and patient medications and allergies were reviewed. The patient's tolerance of previous anesthesia was also reviewed. The risks and benefits of the procedure and the sedation options and risks were discussed with the patient. All questions were answered, and informed consent was obtained. Prior Anticoagulants: The patient has taken no previous anticoagulant or antiplatelet agents. ASA Grade Assessment: II - A patient with mild systemic disease. After reviewing the risks and benefits, the patient was deemed in satisfactory condition to undergo the procedure. After I obtained informed consent, the scope was passed under direct vision. Throughout the procedure, the patient's blood pressure, pulse, and oxygen saturations were monitored continuously. The colonoscope was introduced through the anus and advanced to the cecum, identified by appendiceal orifice and ileocecal valve. The colonoscopy was performed without difficulty. The patient tolerated the procedure well. The quality of the bowel preparation was good. Scope In: 8:28:16 AM Scope Withdrawal Time 0 hours 6 minutes 35 seconds Scope Out: 8:39:05 AM Total Procedure Duration Time 0 hours 10 minutes 49 seconds Findings: Non-bleeding internal hemorrhoids were found during retroflexion. The hemorrhoids were mild and small. A few small-mouthed diverticula were found in the sigmoid colon. No biopsies or other specimens were collected for this exam. The exam was otherwise without abnormality. Impression: - Non-bleeding internal hemorrhoids. - Diverticulosis in the sigmoid colon. No specimens collected. - The examination was otherwise normal. Recommendation: - Discharge patient to home. - Resume previous diet. - Continue present medications. - Repeat colonoscopy in 5 years for surveillance. - Return to primary care physician (date not yet determined). Procedure Code(s): --- Professional --- 66761, Colonoscopy, flexible; diagnostic, including collection of specimen(s) by brushing or washing, when performed (separate procedure) Diagnosis Code(s): --- Professional --- Z12.11, Encounter for screening for malignant neoplasm of colon K64.8, Other hemorrhoids K57.30, Diverticulosis of large intestine without perforation or abscess without bleeding CPT copyright 2017 [employer]. All rights reserved. The codes documented in this report are preliminary and upon plastic process technician review may be revised to meet current compliance requirements. MD Brady Brush MD 02/12/2020 8:42:13 AM This report has been signed electronically. Number of Addenda: 0 Note Initiated On: 02/12/2020 8:18 AM
[2020-02-12 08:45] VITALS: BP 100/69; BP 150/71; PULSE 88; RESP 20; TEMP 36.9; O2SAT 93
[2020-02-12 08:50] VITALS: BP 110/66; BP 150/71; PULSE 80; RESP 16; O2SAT 95
[2020-02-12 08:55] VITALS: BP 106/70; BP 150/71; PULSE 75; RESP 16; O2SAT 95
[2020-02-12 09:00] VITALS: BP 108/72; BP 150/71; PULSE 67; RESP 16; TEMP 36.4; O2SAT 100
[2020-02-12 09:29] VITALS: BP 150/71
== END 2020-02-12 09:30 | disposition home or self-care (01) ==
LOC: EN 07:31 → AC 07:32
PROVIDERS: Anesthesiology; PCP Family Medicine; Referring Provider Family Medicine; Visit Provider Surgery
PROC: 0DJD8ZZ Inspection of Lower Intestinal Tract, Via Natural or Artificial Opening Endoscopic (ICD-10-PCS; CPT 45378; principal; 2020-02-12 08:25)
DX: Z12.11 Encounter for screening for malignant neoplasm of colon (principal); K57.30 Diverticulosis of large intestine without perforation or abscess without bleeding; K64.8 Other hemorrhoids; F32.9 Major depressive disorder, single episode, unspecified; F41.9 Anxiety disorder, unspecified; Z79.899 Other long term (current) drug therapy; G43.909 Migraine, unspecified, not intractable, without status migrainosus
CPT/HCPCS: 45380; 81025; 87635; 94799; J7120; J1610; J2405; U0003

== ENCOUNTER → 2020-07-25 11:19 | Outpatient (CLI) | payer OTHER, SELFPAY ==
--- NOTE | 2020-07-25 11:22 | BI_ITS ---
MAMMOGRAPHY - BILATERAL SCREENING REASON FOR EXAM: Female, 50 years old. Routine annual screening examination. PERTINENT HISTORY: Non-contributory. TECHNIQUE: Digital bilateral breast wendy (3D mammographic acquisition) in the CC and MLO projections. 2-D mediolateral oblique (MLO) and craniocaudad (CC) views of both breasts were obtained. CAD: Full Field Digital Mammography with Computer Added Detection was performed. COMPARISON: Comparison is made with prior study dated 07/24/2019 and 07/20/2018. FINDINGS: Breast Composition: There are scattered areas of fibroglandular density. There are no dominant masses or suspicious calcifications. No other significant abnormalities are identified. There has been no significant change since the prior study. BI/SCRN MAMM (CAD)W/WENDY BILAT IMPRESSION: Stable bilateral screening mammogram. Yearly follow-up mammogram recommended. (A) ASSESSMENT CATEGORY: BIRADS Category 1: Negative. A letter regarding these results will be sent to the patient by the facility within 30 days. Approximately 10% of breast cancers are not detected by mammography. A normal mammogram should not delay biopsy of a clinically suspicious abnormality. [id number] Electronically Signed: Vijay Rosales MD at 12:11 EST , Service support ,
== END ==
PROVIDERS: PCP Family Medicine; Referring Provider Obstetrics & Gynecology; Visit Provider Obstetrics & Gynecology
DX: Z12.31 Encounter for screening mammogram for malignant neoplasm of breast (principal)
CPT/HCPCS: 77063; 77067